=== PATIENT | female | born 1940 | race Caucasian/White ===

== ENCOUNTER → 2022-01-24 | Outpatient (CLI) | payer OTHER ==
[~2022-01-24] MED LIST: ALPR.25 PO; ASPI325EC PO; Aspir 8181 MG PO; B Complex1 EAC2; B-12250 MCG; Biotin1 MG; CONEST1.25 PO; DIPH50; FURO20; FURO40 PO; GLIP2.5ER; GLYBURIDE METF PO; LORA1; LOSA50 PO; Lovastatin10 MG; NAPR220 PO; OMEGA-3 KRILL1 EAC3; OMEP10ER; OMEP40CA12 PO; POTA8 PO; PRAVASTATIN SOD10 MG PO; SERT50 PO
== END | disposition home or self-care (01) ==
LOC: LAB 15:14 → PLD 15:14 → LAB SHORT 15:14
DX: C44.311 Basal cell carcinoma of skin of nose (principal)
CPT/HCPCS: 88305

== ENCOUNTER 2025-03-16 13:47 | Inpatient (IN) | payer MEDICARE ==
[~2025-03-16] VITALS: Ht 165.1 cm; Wt 71.5 kg
[~2025-03-16 13:47] MED LIST changes: +IRBE75 PO; +OMEP20ER PO; -OMEP40CA12 PO; +Percocet 5-3251 EACH PO
[2025-03-16] MEDS ORDERED: NS 1,000 ML IV SCH ×2 (14:00→21:25)
[2025-03-16] MEDS ORDERED: Ondansetron HCl 2 MG / ML 2ML Vial IV ONE (14:00)
[2025-03-16 14:18] LABS: Hematocrit 31.0 % (33.0-51.0); Hemoglobin 9.4 g/dL (11.5-16.0); Mean Corpuscular HGB Conc 30.3 g/dL (31.5-36.5); Mean Corpuscular Volume 84 fL (80-100); NRBC ABSOLUTE 0.79 K/mm3 (0.00-0.02); NRBC Auto 2.3 /100 WBC (0.0-0.2); Platelet Count 404 K/mm3 (150-400); RDW Coefficient Variation 19.0 % (11.7-14.2); RDW Standard Deviation 52.6 fL (35.1-46.3)
[2025-03-16 14:33] LABS: Alanine Aminotransfer (ALT/SGP 52.0 U/L (12-78); Albumin, Blood 1.5 g/dL (3.4-5.0); Albumin/Globulin Ratio 0.3 (0.8-1.8); Anion Gap 18.0 mmol/L (3-11); Aspartate Aminotrans (AST/SGOT 76.0 U/L (12-37); Bilirubin, Total 1.0 mg/dL (0.1-1.0); Blood Urea Nitrogen 74.0 mg/dL (8-24); CO2, Blood 14.0 mmol/L (21-32); Calcium, Blood 8.3 mg/dL (8.5-10.1); Chloride, Blood 102.0 mmol/L (98-108); Creatinine, Blood 1.91 mg/dL (0.40-1.00); Globulin, Blood 5.1 g/dL (2.2-4.0); Glucose, Blood 201.0 mg/dL (70-99); Potassium, Blood 4.5 mmol/L (3.5-5.5); Sodium, Blood 129.0 mmol/L (136-145); Total Protein, Blood 6.6 g/dL (6.4-8.2)
[2025-03-16 14:51] LABS: BASOPHILS ABSOLUTE MAN 0.00 K/mm3 (0.00-0.23); BASOPHILS PERCENT MAN 0 % (0-2); EOSINOPHILS ABSOLUTE MAN 0.34 K/mm3 (0.00-0.68); EOSINOPHILS PERCENT MAN 1 % (0-6); LYMPHOCYTES ABSOLUTE MAN 6.56 K/mm3 (0.84-5.20); LYMPHOCYTES PERCENT MAN 19 % (21-46); METAMYELOCYTE ABSOLUTE MAN 0.34 K/mm3 (0.00-0.00); METAMYELOCYTE PERCENT MAN 1 % (0-0); MONOCYTES ABSOLUTE MAN 1.72 K/mm3 (0.16-1.47); MONOCYTES PERCENT MAN 5 % (4-13); MYELOCYTE ABSOLUTE MAN 0.34 K/mm3 (0.00-0.00); MYELOCYTE PERCENT MAN 1 % (0-0); NEUTROPHILS ABSOLUTE MAN 25.22 K/mm3 (1.96-9.15); SEG NEUTROPHILS PERCENT MAN 73 % (41-73)
[2025-03-16] MEDS ORDERED: LEVSOD137 PO (20:39)
[2025-03-16] MEDS ORDERED: METF500 PO (20:42)
[2025-03-16] MEDS ORDERED: ATOR20 PO (20:42)
[2025-03-16] MEDS ORDERED: GLIM4 PO (20:49)
[2025-03-16] MEDS ORDERED: Estradiol1 MG PO (20:50)
[2025-03-16] MEDS ORDERED: Ondansetron HCl 2 MG / ML 2ML Vial IV PRN (21:25)
[2025-03-16] MEDS ORDERED: OxyCODONE 5 mg/Acetamin 325 mg TABLET PO PRN (21:25)
[2025-03-16] MEDS ORDERED: XANAX0.25 MG PO (21:26)
[2025-03-16 21:56] LABS: pH Blood Venous 7.29 (7.34-7.37)
[2025-03-16 22:07] VITALS: BP 150/53
[2025-03-17] MEDS ORDERED: Heparin Sodium,Porcine 5,000 UNIT/0.5 ML SDV SC SCH
[2025-03-17 02:42] VITALS: BP 116/40
[2025-03-17 03:17] LABS: U Amphetamine Screen Not Detected; U Barbituate Screen Not Detected; U Benzodiazapine Screen Not Detected; U Buprenorphine Screen Not Detected; U Cannabinoids Screen Not Detected; U Cocaine Screen Not Detected; U Methadone Screen Not Detected; U Methamphetamine Screen Not Detected; U Opiates Screen Not Detected; U Oxycodone Screen Not Detected; U Phencyclidine Screen Not Detected
[2025-03-17 03:44] LABS: Source, Urine Fem Cath
[2025-03-17 04:01] LABS: Bilirubin, Urine Neg (Neg); Glucose Qualitative, Urine Neg (Neg); Ketones, Urine Neg (Neg); Leukocyte Esterase, Urine 1+ (Neg); Protein, Urine 2+ (Neg); Specific Gravity, Urine 1.020 (1.003-1.022); Urobilinogen, Urine 1+ (Normal)
[2025-03-17 04:19] LABS: Color, Urine Yellow (P-Yellow)
[2025-03-17 04:20] LABS: Red Blood Cells, Urine 0-2 /hpf (0-2); White Blood Cells, Urine 0-2 /hpf (0-5); Yeast/Fungi Urine Many /hpf
[2025-03-17 04:21] LABS: BASOPHILS ABSOLUTE AUTO 0.07 K/mm3 (0.00-0.23); BASOPHILS PERCENT AUTO 0 % (0-2); EOSINOPHILS ABSOLUTE AUTO 0.03 K/mm3 (0.00-0.68); EOSINOPHILS PERCENT AUTO 0 % (0-6); Hematocrit 29.5 % (33.0-51.0); Hemoglobin 8.8 g/dL (11.5-16.0); IMMATURE GRAN ABSOLUTE AUTO 0.65 K/mm3 (0.00-0.10); IMMATURE GRAN PERCENT AUTO 2 % (0-1); LYMPHOCYTES ABSOLUTE AUTO 3.53 K/mm3 (0.84-5.20); LYMPHOCYTES PERCENT AUTO 12 % (21-46); MONOCYTES ABSOLUTE AUTO 1.22 K/mm3 (0.16-1.47); MONOCYTES PERCENT AUTO 4 % (4-13); Mean Corpuscular HGB Conc 29.8 g/dL (31.5-36.5); Mean Corpuscular Volume 84 fL (80-100); NEUTROPHILS ABSOLUTE AUTO 24.68 K/mm3 (1.96-9.15); NEUTROPHILS PERCENT AUTO 82 % (41-73); NRBC ABSOLUTE 0.70 K/mm3 (0.00-0.02); NRBC Auto 2.3 /100 WBC (0.0-0.2); Platelet Count 286 K/mm3 (150-400); RDW Coefficient Variation 19.3 % (11.7-14.2); RDW Standard Deviation 53.6 fL (35.1-46.3)
[2025-03-17 04:37] LABS: Alanine Aminotransfer (ALT/SGP 49.0 U/L (12-78); Albumin, Blood 1.3 g/dL (3.4-5.0); Albumin/Globulin Ratio 0.3 (0.8-1.8); Anion Gap 18.0 mmol/L (3-11); Aspartate Aminotrans (AST/SGOT 94.0 U/L (12-37); Bilirubin, Total 1.2 mg/dL (0.1-1.0); Blood Urea Nitrogen 84.0 mg/dL (8-24); CO2, Blood 13.0 mmol/L (21-32); Calcium, Blood 7.3 mg/dL (8.5-10.1); Chloride, Blood 108.0 mmol/L (98-108); Creatinine, Blood 1.95 mg/dL (0.40-1.00); Globulin, Blood 4.6 g/dL (2.2-4.0); Glucose, Blood 176.0 mg/dL (70-99); Magnesium, Blood 3.0 mg/dL (1.6-2.4); Potassium, Blood 4.5 mmol/L (3.5-5.5); Sodium, Blood 134.0 mmol/L (136-145); Total Protein, Blood 5.9 g/dL (6.4-8.2)
--- NOTE | 2025-03-17 05:16 | NUR ---
SHIFT SUMMARY NOC PT A/O X 4. PLEASANT AND COOPERATIVE WITH CARE. VSS. 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 PT IS EXTREMELY WEAK AND REPORTS LOSING >20 LBS OVER PAST MONTH DUE TO POOR PO INTAKE. PT HAS PUREWICK IN PLACE DUE TO URGENCY AND GENERALIZED WEAKNESS. PT HAD RENAL ULTRASOUND PERFORMED BEDSIDE AFTER PT ARRIVED ON UNIT, STILL AWAITING RESULTS. PT HAS NS INFUSING @ 100 ML/HR. PT HAS PALLIATIVE CARE CONSULT ORDERED. PT CURRENTLY RESTING WITH BED IN LOWEST POSITION, AND CALL LIGHT WITHIN REACH.
[2025-03-17 08:25] VITALS: BP 152/60
[2025-03-17] MEDS ORDERED: Sodium Bicarb 8.4% Inj 150 MEQ in Dextrose 5% 1,000 ML IV SCH (09:00)
[2025-03-17] MEDS ORDERED: Insulin Human Lispro 100 Units/ML 3ML Syringe SC SCH (11:30)
--- NOTE | 2025-03-17 12:22 | NUR ---
ROUNDED ON PT. SLEEPING AT THIS TIME, SHE HAD JUST WORKED WITH PT. DISCUSSED CASE WITH BEDSIDE NURSE. PROVIDER HAD DISCUSSED EOL CARE THIS MORNING. WILL FOLLOW UP WITH PATIENT ON THAT CONVERSATION.
--- NOTE | 2025-03-17 13:22 | NUR ---
MET WITH PATIENT AND FAMILY. ANSWERED QUESTIONS ABOUT KENDALL AND DIAGNOSTIC PROCEDURES. PATIENT IS GOING TO HAVE A BARIUM STUDY TOMORROW.
[2025-03-17] MEDS ORDERED: STIOLTO RESPIMAT4 G1 INH (14:09)
[2025-03-17 16:26] VITALS: BP 168/65
--- NOTE | 2025-03-17 17:06 | NUR ---
SHIFT SUMMARY: A&OX4 THIS SHIFT. CAN BE FORGETFUL AT TIMES. PT IS VERY PLEASANT AND COOPERATIVE WITH CARE PROVIDED. SPEECH THERAPY IN TO EVALUATE PT THIS AM. PLAN TO DO A BARIUM SWALLOW STUDY TOMORROW. MULTIPLE FAMILY MEMBERS IN AND OUT OF ROOM THROUGHOUT SHIFT. PT REMAINS IN BED WITH PUREWICK IN PLACE DUE TO WEAKNESS. ATTENDS C/D/I. MONITOR CBG AC&HS WHILE MEDICATING PER EMAR. BED IN THE LOWEST POSITION AT THIS TIME. CALL LT NEAR. DENIES CHEST PAIN AND/OR DISCOMFORT. DENIES SHORTNESS OF BREATH.
[2025-03-17 18:11] LABS: Total Iron Binding Capacity 167.0 ug/dL (250-450)
[2025-03-17 18:15] LABS: Anion Gap 17.0 mmol/L (3-11); Blood Urea Nitrogen 87.0 mg/dL (8-24); CO2, Blood 17.0 mmol/L (21-32); Calcium, Blood 7.1 mg/dL (8.5-10.1); Chloride, Blood 102.0 mmol/L (98-108); Creatinine, Blood 2.12 mg/dL (0.40-1.00); Ferritin, Serum 5600.0 ng/mL (8-252); Glucose, Blood 259.0 mg/dL (70-99); Potassium, Blood 4.5 mmol/L (3.5-5.5); Sodium, Blood 131.0 mmol/L (136-145)
[2025-03-17 20:16] VITALS: BP 120/69
[2025-03-18 02:47] VITALS: BP 170/54
[2025-03-18 05:48] LABS: Hematocrit 26.5 % (33.0-51.0); Hemoglobin 8.3 g/dL (11.5-16.0)
[2025-03-18 06:11] LABS: Anion Gap 13.0 mmol/L (3-11); Blood Urea Nitrogen 90.0 mg/dL (8-24); CO2, Blood 21.0 mmol/L (21-32); Calcium, Blood 6.9 mg/dL (8.5-10.1); Chloride, Blood 100.0 mmol/L (98-108); Creatinine, Blood 2.22 mg/dL (0.40-1.00); Glucose, Blood 259.0 mg/dL (70-99); Potassium, Blood 4.0 mmol/L (3.5-5.5); Sodium, Blood 130.0 mmol/L (136-145)
[2025-03-18 07:29] VITALS: BP 147/80
[2025-03-18 14:42] VITALS: BP 152/67
--- NOTE | 2025-03-18 17:46 | NUR ---
SHIFT SUMMARY: PATIENT PROFOUNDLY WEAK, FATIGUED, POOR PO INTAKE. PATIENT HAD A BARRIUM SWALLOW TODAY AND IS NOW ON MILDLY THICK LIQUIDS. PATIENT C/O ABD PAIN SINCE BARRIUM STUDY; HAS BEEN PASSING GAS, BUT NO STOOL. LR RUNNING AT 75ML/HR. PATIENT UTILIZING PUREWICK FOR VOIDING; SOME OUTPUT THROUGHOUT THE SHIFT. PATIENT BLADDER SCANNED TO CHECK AND ONLY HAD 55ML. PATIENT BEING REPOSITIONED Q2HRS, MEDICATED FOR PAIN AND NAUSEA NEEDED. SHE IS IN BED, CALL LIGHT WITHIN REACH, NO SIGNS OR SYMPTOMS OF DISTRESS, PLAN OF CARE ONGOING.
[2025-03-18 19:12] VITALS: BP 172/99
--- NOTE | 2025-03-18 19:19 | NUR ---
NEW TELEPHONE ORDER RECEIVED FROM THE ON-CALL HOSPITALIST DR. HILLIARD: COMPAZINE 5MG IV Q4HRS PRN FOR N/V. ENTERED TO [facility], SEE EMAR.
[2025-03-18] MEDS ORDERED: Prochlorperazine Edisylate 10 mg Vial IV PRN (19:20)
[2025-03-18 20:43] VITALS: BP 136/56
--- NOTE | 2025-03-18 20:54 | NUR ---
@HS PT'S BG 118. 10 U GLARGINE SCHEDULED ORDERED AT 2100 -DID NOT ADMINISTER D/T PT ACTIVELY VOMITING, NAUSEOUS, NO PO INTAKE. (PT HAD A BARIUM STUDY TODAY AND REMAINED N/V THERE AFTER). THIS APPLICATIONS SPECIALIST CALLED THE ON-CALL HOSPITALIST DR. HILLIARD AND NOTIFIED THAT 2100 GLARGINE WAS HELD. NEW TELEPHONE ORDER IS: CHANGE BLOOD GLUCOSE CHECKS FROM AC/HS TO: Q6 HRS. ENTERED TO [employer]. NO ADDITIONAL NEW ORDERS AT THIS TIME.
[2025-03-18] MEDS ORDERED: Insulin Glargine-Yfgn 100 Unit/mL 3 ML SYR SC SCH (21:00)
--- NOTE | 2025-03-19 03:37 | NUR ---
SHIFT SUMMARY PT HAVING NAUSEA, MEDICATED PER EMAR WITH COMPAZINE IV Q4HRS. PT VOMITING LARGE AMOUNTS OF EMESIS AT HS, WELL MIDNIGHT. AT HS, PT C/O ANXIETY, MEDICATED WITH PRN XANAX PO. MEDS CRUSHED WITH APPLESAUCE. PT TOLERATED 1TSP OF APPLESAUCE. NO PO INTAKE. Q6 HR BG'S D/T NO PO INTAKE, @HS: 118 (HELD GLARGINE, SEE PREVIOUS NOTE, PROVIDER NOTIFIED), AND MIDNIGHT BG 153. HOB ELEVATED. PUREWICK DRAINING YELLOW COLOR URINE. LR INFUSING @75MLS/HR ORDERED. BED AT THE LOWEST POSITION, CALL LIGHT W/I REACH. PT IS DROUWSY, ORIENTED X4, EASILY AROUSABLE. PT IS ABLE TO MAKE HER NEEDS KNOWN AND IS COOPERATIVE WITH CARE.
[2025-03-19 05:26] VITALS: BP 126/54
[2025-03-19 05:57] LABS: Anion Gap 19.0 mmol/L (3-11); Blood Urea Nitrogen 97.0 mg/dL (8-24); CO2, Blood 17.0 mmol/L (21-32); Calcium, Blood 6.8 mg/dL (8.5-10.1); Chloride, Blood 101.0 mmol/L (98-108); Creatinine, Blood 2.66 mg/dL (0.40-1.00); Glucose, Blood 140.0 mg/dL (70-99); Potassium, Blood 4.5 mmol/L (3.5-5.5); Sodium, Blood 132.0 mmol/L (136-145)
[2025-03-19] MEDS ORDERED: Insulin Human Lispro 100 Units/ML 3ML Syringe SC SCH (06:00)
[2025-03-19 07:23] VITALS: BP 129/47
[2025-03-19] MEDS ORDERED: OxyCODONE 5 mg/Acetamin 325 mg TABLET PO PRN (07:50)
--- NOTE | 2025-03-19 07:50 | NUR ---
CALL TO DR. HERNANDEZ: ASSESSED PATIENT THIS MORNING. SHE DOES NOT APPEAR WELL, LABS WORSENING. PATIENT LETHARGIC,HAVING HARD TIME KEEPING EYES OPEN. PATIENT REPONSES TO VERBAL STIMULI, ANSWERS QUESTIONS. PATIENT C/O PAIN; TENDERNESS IN ABD WITH PALPATION, STATES SHE IS ACHING ALL OVER. CALLED DR. HERNANDEZ AND GAVE AN UPDATE AND VOICED CONCERNS.
--- NOTE | 2025-03-19 09:52 | NUR ---
PT STATES SHE KNOWS SHE IS DYING. SHE STATES SHE WOULD LIKE TO BE COMFORTABLE. FAMILY AT BEDSIDE, THEY ARE A NIECE, NEPHEW, BROTHER IN LAW. THEY REPORT PT HAS A SON, BUT HE IS A TRUCKDRIVER AND CURRENTLY ON THE ROAD. FAMILY ALL LIVE OUT OF STATE, AND PT LIVES ALONE. DISCUSSED WITH DR. HERNANDEZ, PT PLACED ON COMFORT CARE.
[2025-03-19] MEDS ORDERED: Morphine Sulfate 20 MG/1ML 1 ML Oral Syringe SL PRN (10:00)
[2025-03-19] MEDS ORDERED: Atropine Sulfate 1% Opth Soln 2ML BTL SL PRN (10:00)
--- NOTE | 2025-03-19 12:04 | NUR ---
"Spiritual Care Visit | Comfort Care Pt. is resting but ocassionally responds to those in the room. Many family are at bedside. Facilitated a short life review and family shared warm stories of how beloved the Pt. was to everyone who knew her. Considered matters of the Pts. ernestina. Listen with emapthy and a pastoral presence. Family welcomed prayer for the Pt. and for them. Family verbalized gratitude for the spiritual care visit. Will remain available to the Pt. and family."
--- NOTE | 2025-03-19 12:31 | NUR ---
PATIENT EXPRESSING DIFFICULTY BREATHING "I CAN'T BREATHE." PATIENT PLACED ON A NASAL CANNULA 2L THEN 6L; THEN NON REBREATHER 15L. PATIENT BREATHING HARD AND FAST. SPO2 CHECKED POOR PERF 77-100% READING. PATIENT WAS MEDICATED WITH 5MG THEN 10 MG OF ROXANOL WITH 1 MG OF ATIVAN WITH THE 10 MG DOSE. PATIENT BREATHING SOMEWHAT SLOWED, BUT STILL PANICKED/DISTRESSED. CALL MADE TO MACHO IN PALLATIVE WITH GUIDANCE, DUE TO POSSIBLE ROXANOL REACTION.
--- NOTE | 2025-03-19 13:00 | NUR ---
DR. HERNANDEZ CAME BY GAVE HIM AN UPDATE ON THE PATIENT. DISCUSSED POTENTIAL PLAN. DR. HERNANDEZ IN ROOM TO ASSESS PATIENT.
[2025-03-19] MEDS ORDERED: HYDROmorphone HCl/Pf 1MG SYR IV PRN (13:05)
[2025-03-19] MEDS ORDERED: DiphenhydrAMINE HCl 50 MG/ML 1ML Vial IV PRN (13:15)
--- NOTE | 2025-03-19 13:15 | NUR ---
PATIENT NON RESPONSIVE AT THIS TIME; BREATHING IMPROVED, OXYGEN REMOVED. FAMILY AT BEDSIDE.
--- NOTE | 2025-03-19 14:34 | NUR ---
PATIENT PASSED AT 1420; THIS RN AND FAMILY IN ROOM. 2 RN VERIFICATION WITH ELOINA RECINOS RN. CALLED PALLATIVE CARE AND DR. HERNANDEZ. PASTORAL CARE CAME TO BEDSIDE. ARMORED MACHINE OPERATOR NOTIFIED.
--- NOTE | 2025-03-19 15:05 | NUR ---
"Spiritual Care | (EOL) | [facility] Pt. had passed when the molder machine was called. At bedside pastoral care and condolences were expressed. Prayed for the family. Met with family members. EOL Education is addresses. Family has chosen [facility] for their fu[facility] home. Attending nurse got the family contact number and provided it to Charge Nurse Micheal. Family verbalized gratitude for the spiritual care support and will let the nurses know when they leave."
--- NOTE | 2025-03-19 15:11 | NUR ---
NEXT OF KIN CONTACT INFO SHARRON MONZON [phone]
== END 2025-03-19 14:20 | DRG 683 ==
LOC: ER 13:47 → MEDS 18:42
PROVIDERS: Emergency Medicine; Internal Medicine; Nurse Practitioner Acute Care; ADMIT Internal Medicine
DX: N17.9 Acute kidney failure, unspecified (principal); C34.92 Malignant neoplasm of unspecified part of left bronchus or lung; E87.1 Hypo-osmolality and hyponatremia; C77.1 Secondary and unspecified malignant neoplasm of intrathoracic lymph nodes; C79.70 Secondary malignant neoplasm of unspecified adrenal gland; I10 Essential (primary) hypertension; I95.9 Hypotension, unspecified; R13.10 Dysphagia, unspecified; Z51.5 Encounter for palliative care; Z66 Do not resuscitate; E86.1 Hypovolemia; D64.9 Anemia, unspecified; F32.A Depression, unspecified; E78.5 Hyperlipidemia, unspecified; D72.829 Elevated white blood cell count, unspecified; K21.9 Gastro-esophageal reflux disease without esophagitis; F41.9 Anxiety disorder, unspecified; E11.9 Type 2 diabetes mellitus without complications; Z88.1 Allergy status to other antibiotic agents; Z87.891 Personal history of nicotine dependence
CPT/HCPCS: 36415; 71045; 74230; 76770; 80048; 80053; 81001; 82550; 82728; 82803; 82947; 83540; 83550; 83735; 83880; 85014; 85018; 85025; 86850; 86900; 86901; 87086; 87106; 92610; 92611; 93005; 93010; 96361; 96374; 97162; 97530; 99285-25; A9270; J0780; J1644; J1815; J2405; J7030; J7070; J7120